=== PATIENT | male | born 1995 | race Hispanic/Latino ===

== ENCOUNTER 2018-07-28 00:38 | Emergency (ER) | payer SELFPAY | END 2018-07-28 01:22 | disposition home or self-care (01) | LOC: EDH 00:38 | DX: S50.861A Insect bite (nonvenomous) of right forearm, initial encounter (principal); J45.909 Unspecified asthma, uncomplicated; W57.XXXA Bitten or stung by nonvenomous insect and other nonvenomous arthropods, initial encounter; Y93.89 Activity, other specified; Y92.89 Other specified places as the place of occurrence of the external cause; Y99.8 Other external cause status | CPT/HCPCS: 99281 ==

== ENCOUNTER 2019-07-10 19:53 | Emergency (ER) | payer SELFPAY ==
[2019-07-10] MEDS ORDERED: ACETAMINOPHEN EXTRA STRENGTH 500 MG TABLET ONE (20:05)
[2019-07-10] MEDS ORDERED: DOXYCYCLINE HYCLATE 100 MG TABLET PO ONE (20:05)
== END 2019-07-10 20:55 | disposition home or self-care (01) ==
LOC: EDH 19:53
DX: L03.116 Cellulitis of left lower limb (principal); J45.909 Unspecified asthma, uncomplicated

== ENCOUNTER 2020-10-04 21:19 | Emergency (ER) | payer SELFPAY ==
[~2020-10-04] VITALS: Ht 175.3 cm; Wt 72.6 kg
[2020-10-04] MEDS ORDERED: IBUPROFEN 600 MG TABLET PO ONE (22:00)
[2020-10-04] MEDS ORDERED: ONDANSETRON ODT 4 MG TAB SL ONE (22:00)
[2020-10-04] MEDS ORDERED: ACETAMINOPHEN 325 MG TAB PO ONE (22:00)
[2020-10-04] MEDS ORDERED: IBUPROFEN 600 MG TABLET ONE (23:13)
[2020-10-04] MEDS ORDERED: ACETAMINOPHEN 325 MG TAB ONE (23:13)
[2020-10-04] MEDS ORDERED: ONDANSETRON ODT 4 MG TAB ONE (23:14)
[2020-10-04] MEDS ORDERED: IBUP-2070 PO (23:43)
[2020-10-04] MEDS ORDERED: ONDA4TAB4 PO (23:43)
[2020-10-04] MEDS ORDERED: ACET-66 PO (23:43)
== END 2020-10-05 00:02 | disposition home or self-care (01) ==
LOC: EDH 22:20
DX: B34.9 Viral infection, unspecified (principal); Z20.822 Contact with and (suspected) exposure to COVID-19; Z79.1 Long term (current) use of non-steroidal anti-inflammatories (NSAID)
CPT/HCPCS: 87635; 87804 ×2; 87880; 99284; C9803